=== PATIENT | male | born 1995 | race African-American/Black ===

== ENCOUNTER 2016-05-02 18:09 | Emergency (ER) | payer OTHER ==
[~2016-05-02] VITALS: Ht 193 cm; Wt 100.0 kg
[~2016-05-02 18:09] MED LIST: AMOXICILLIN875 MG PO; MOTRIN800 MG PO; PEN-VEE K,VEET500 MG PO; PROVENTIL,2.5 MG/3 M IH
[2016-05-02 19:10] VITALS: BP 123/71
== END 2016-05-02 19:11 | disposition home or self-care (01) ==
LOC: EME 18:09
DX: S93.401A Sprain of unspecified ligament of right ankle, initial encounter (principal); X50.9XXA Other and unspecified overexertion or strenuous movements or postures, initial encounter; Y93.64 Activity, baseball
CPT/HCPCS: 73610; 99281; 99283

== ENCOUNTER 2016-08-18 12:25 | Emergency (ER) | payer OTHER ==
[~2016-08-18] VITALS: Ht 193 cm; Wt 101.7 kg
[2016-08-18] MEDS ORDERED: BENADRYL50 MG PO (14:55)
[2016-08-18] MEDS ORDERED: PREDNISONE20 MG PO (14:55)
[2016-08-18] MEDS ORDERED: VENTOLIN HFA18 GM IH (14:55)
[2016-08-18 15:02] VITALS: BP 138/74
== END 2016-08-18 15:04 | disposition home or self-care (01) ==
LOC: EME 12:25
DX: J45.901 Unspecified asthma with (acute) exacerbation (principal); F17.200 Nicotine dependence, unspecified, uncomplicated
CPT/HCPCS: 87651 90; 94640; 99281; 99284; J7512